=== PATIENT | male | born 1980 | race Two or more races ===

== ENCOUNTER 2016-12-13 18:01 | Emergency (ER) | payer SELFPAY ==
[2016-12-13 18:28] VITALS: TEMP 97.7
[2016-12-13] MEDS ORDERED: THIAMINE 100 MG/ML 100 MG/ML SOL IV ONE (18:39)
[2016-12-13] MEDS ORDERED: SODIUM CHLORIDE 0.9% FLUSH 10 ML SOL IV PRN (18:39)
[2016-12-13] MEDS ORDERED: SODIUM CHLORIDE 0.9% 1000ML 1,000 ML IV ONE (18:39)
[2016-12-13 18:52] LABS: BASOPHILS % (AUTO) 1 % (0-3); EOSINOPHILS % (AUTO) 1 % (0-9); HEMATOCRIT 44 % (39-53); MEAN CORPUSCULAR HGB CONC 35.5 gm/dl (32.0-36.0); MEAN CORPUSCULAR VOLUME 95 fL (80-100); MONOCYTES % (AUTO) 8.7 % (0-12); NEUTROPHILS % (AUTO) 52.5 % (37-80)
[2016-12-13] MEDS ORDERED: THIAMINE 100 MG/ML 100 MG/ML SOL ONE (18:55)
[2016-12-13] MEDS ORDERED: MORPHINE SULFATE 10 MG/ML SOL IV ONE (18:59)
[2016-12-13 19:09] LABS: AMPHETAMINES NEGATIVE (NEGATIVE); METHADONE NEGATIVE (NEGATIVE); OPIATES(OP13) NEGATIVE (NEGATIVE); OXYCODONE(OXY) NEGATIVE (NEGATIVE); PROPOXYPHENE(PPX) NEGATIVE (NEGATIVE); TRICYCLIC ANTIDEPRESSANTS NEGATIVE (NEGATIVE)
[2016-12-13] MEDS ORDERED: MORPHINE SULFATE 10 MG/ML SOL ONE (19:09)
[2016-12-13 19:16] LABS: ALBUMIN 4.1 gm/dl (3.4-5.0); CALCIUM 8.3 mg/dl (8.5-10.1); POTASSIUM 3.8 mMol/L (3.5-5.1)
[2016-12-13 23:42] VITALS: BP 106/71; PULSE 99; RESP 14; O2SAT 97
== END 2016-12-13 20:11 | disposition home or self-care (01) | DRG 392 ==
LOC: ED 18:01
DX: K29.20 Alcoholic gastritis without bleeding (principal); F10.229 Alcohol dependence with intoxication, unspecified; Y90.8 Blood alcohol level of 240 mg/100 ml or more
CPT/HCPCS: 36415; 80053; 80305; 80307; 82150; 85025; 99284; J2270